=== PATIENT | male | born 1965 | race Caucasian/White ===

== ENCOUNTER 2023-06-28 23:22 | Emergency (ER) | payer OTHER ==
[~2023-06-28] VITALS: Ht 182.9 cm; Wt 109.0 kg
[2023-06-28 23:26] VITALS: O2SAT 100
[2023-06-28 23:43] LABS: BASOPHILS % 0.2 % (0.0-2.0); EOSINOPHILS % 0.3 % (0.0-5.0); HEMATOCRIT. 44.1 % (42.0-52.0); HEMOGLOBIN. 15.1 g/dL (14.0-18.0); LYMPHOCYTES % 10.7 % (20.0-50.0); MEAN CORPUSCULAR HEMOGLOBIN 31.6 pg (28.0-32.0); MEAN CORPUSCULAR HGB CONC 34.4 g/dL (31.0-37.0); MEAN CORPUSCULAR VOLUME 92.1 fL (80.0-94.0); MEAN PLATELET VOLUME 8.6 fl (7.4-10.4); MONOCYTES % 5.5 % (2.0-8.0); NEUTROPHILS % 83.3 % (40.0-76.0); PLATELET 213 x1000/uL (130-400); RED BLOOD CELL COUNT 4.79 mill/uL (4.7-6.1); RED CELL DISTRIBUTION WIDTH 13.8 % (11.6-14.6); WHITE BLOOD COUNT 11.6 x1000/uL (4.5-11.0)
[2023-06-28] MEDS ORDERED: ONDANSETRON HCL 4MG/2ML INJ IV ONE (23:45)
[2023-06-29] LABS: CHLORIDE 108 mEq/L (98-107); INDEX HEMOLYSI 2 (1-3); INDEX ICTERIC 1 (1-4); INDEX LIPEMIC 1 (1-3); SODIUM 139 mEq/L (136-145)
[2023-06-29 00:09] LABS: ALANINE AMINOTRANSFERASE 45 IU/L (13-61); ALBUMIN 4.1 g/dL (3.4-5.0); ASPARTATE AMINOTRANSFERASE 29 IU/L (15-37); BILIRUBIN TOTAL 0.4 mg/dL (0.1-1.0); CALCIUM 8.5 mg/dL (8.5-10.1); CARBON DIOXIDE 25 mEq/L (21-32); CREATININE 0.8 mg/dL (0.6-1.3); ETHANOL BLOOD < 10 mg/dL (<10); GLUCOSE 124 mg/dL (70-105); NT PRO B-TYPE NATRIURETIC PEP 21 pg/mL (5-125); PROTEIN TOTAL 7.4 g/dL (6.0-8.3); TROPONIN I HIGH SENSITIVITY 5 ng/L (<78); UREA NITROGEN BLOOD 17 mg/dL (7-21)
[2023-06-29] MEDS ORDERED: SODIUM CHLORIDE 0.9% 1,000 ML IV NR (00:30)
[2023-06-29 01:41] VITALS: BP 137/79; PULSE 68; RESP 18; TEMP 98.4
[2023-06-29] MEDS ORDERED: ONDA4TAB50 MT (01:50)
[2023-06-29] MEDS: ONDANSETRON HCL 4MG/2ML INJ IV NR ×2 (02:25→02:28)
== END 2023-06-29 02:38 | disposition home or self-care (01) ==
LOC: ER 23:22
DX: R55 Syncope and collapse (principal); I10 Essential (primary) hypertension
CPT/HCPCS: 80053; 80320; 82962; 83880; 83690; 85025; 84484; 36415; 71045; 93005; 99285; 70450; 96374; J2405; G0480